=== PATIENT | female | born 1950 ===

== ENCOUNTER 2021-07-20 09:15 | Inpatient (IN) | payer OTHER ==
[~2021-07-20] VITALS: Ht 152.4 cm; Wt 56.2 kg
[2021-07-21] MEDS ORDERED: ZOLOF PO (14:19)
[2021-07-21] MEDS ORDERED: [UNRECOGNIZED DRUG - OTHER] (14:20)
[2021-07-21] MEDS ORDERED: [UNRECOGNIZED DRUG - OTHER] PO (14:20)
[2021-07-21] MEDS ORDERED: FLEXERIL PO (14:21)
[2021-07-21] MEDS ORDERED: PANADOL PO (14:22)
[2021-07-21] MEDS ORDERED: GABAPEN PO (14:22)
[2021-07-25] MEDS ORDERED: MOMETASONE FURO60 ML (13:07)
[2021-07-25] MEDS ORDERED: RALOXIFENE HCL60 MG (13:07)
[2021-07-25] MEDS ORDERED: SERTRALINE HCL50 MG (13:07)
[2021-07-25] MEDS ORDERED: BACLOFEN20 MG (13:07)
[2021-07-25] MEDS ORDERED: CYCLOBENZAPRINE10 MG (13:07)
[2021-07-25] MEDS ORDERED: ENALAPRIL MALE2.5 MG (13:07)
[2021-07-25] MEDS ORDERED: PANTOPRAZOLE SO40 MG (13:07)
[2021-07-25] MEDS ORDERED: FAMOTIDINE20 MG (13:08)
[2021-07-25] MEDS ORDERED: ACETAMINOPHEN325 M1 PO (13:09)
[2021-07-25] MEDS ORDERED: MEDROLPACK PO (15:24)
[2021-07-25] MEDS ORDERED: NEURONTIN800 MG PO (15:24)
[2021-07-25] MEDS ORDERED: COLACE100 MG PO (15:24)
[2021-07-25] MEDS ORDERED: AMOX-CLAV 875-1 EACH PO (15:24)
[2021-07-25] MEDS ORDERED: PERCOCET 5-3251 EACH PO (15:24)
[2021-07-25] MEDS ORDERED: DIAZEPAM5 MG PO (15:24)
== END 2021-07-26 14:12 | disposition home or self-care (01) | DRG 460 ==
LOC: ADM 09:15 → O/R 07-25 07:11 → SURH 07-25 10:30 → CIR.AMB 07-25 10:30 → EDSTATUS 07-25 10:30 → SURH 07-25 13:30 → SURG 07-25 19:03
PROVIDERS: ADMIT Orthopaedic Surgery Orthopaedic Surgery of the Spine; ATTEND Orthopaedic Surgery Orthopaedic Surgery of the Spine
PROC: 07DR0ZZ Extraction of Iliac Bone Marrow, Open Approach (ICD-10-PCS; 2021-07-25)
PROC: 0SG10AJ Fusion of 2 or more Lumbar Vertebral Joints with Interbody Fusion Device, Posterior Approach, Anterior Column, Open Approach (ICD-10-PCS; 2021-07-25)
PROC: 0SG10JJ Fusion of 2 or more Lumbar Vertebral Joints with Synthetic Substitute, Posterior Approach, Anterior Column, Open Approach (ICD-10-PCS; principal; 2021-07-25 13:30)
DX: M43.16 Spondylolisthesis, lumbar region (principal); M48.062 Spinal stenosis, lumbar region with neurogenic claudication